=== PATIENT | female | born 1950 | race Caucasian/White ===

== ENCOUNTER → 2020-11-16 12:23 | Outpatient (CLI) | payer MEDICARE, SELFPAY ==
--- NOTE | ~2020-11-16 | MR_ITS ---
EXAMINATION: MR foot LT wo/w con DATE: 11/16/2020 13:41 INDICATION: Left foot pain with erythema at the fifth toe TECHNIQUE: Magnetic resonance imaging (MRI) of the left fore/mid foot was performed without and with 15 mL Multihance intravenous contrast. Sequences included axial, sagittal and coronal T1-weighted FSE , sagittal fluid sensitive FSE STIR, and axial and coronal T2-weighted FS FSE, axial T1-weighted FS F SE and postcontrast axial, sagittal and coronal T1-weighted FS FSE. COMPARISON: None FINDINGS: No traumatic malalignment. No fracture. There is increased fluid signal, enhancement and loss of T1 f at signal occupying the majority of the likely developmentally fused middle and distal phalanges of t he left fifth toe which is suspicious for osteomyelitis. There small foci of susceptibility artifact along what appears be an oblique screw or drill tract extending from dorsal to plantar across the pro ximal metaphyseal region of the first metatarsal with additional tiny foci of susceptibility artifact in the soft tissues overlying the medial head of the first metatarsal. Correlate with surgical histo ry. Marrow signal is otherwise normal throughout. 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 Mild osteoarthritis at several of the tarsal metatarsal and interphalangeal join ts. No abscess, joint effusions or other abnormal fluid collections. The visualized portions of the f lexor and extensor tendons are normal. The Lisfranc ligament complex as well as the collateral ligame nt complex at the metatarsophalangeal joints are normal. IMPRESSION: 1. Marrow signal change and enhancement at the likely fused fifth middle and distal phalanges which a re suspicious for osteomyelitis. Reviewed, dictated and finalized at location [facility]. IMPRESSION: 1. Marrow signal change and enhancement at the likely fused fifth middle and di stal phalanges which are suspicious for osteomyelitis.
[2020-11-16 13:04] LABS: Estimated Glomerular Filt Rate > 60
== END ==
PROVIDERS: Visit Provider Podiatrist Foot & Ankle Surgery
DX: M79.672 Pain in left foot (principal); R93.7 Abnormal findings on diagnostic imaging of other parts of musculoskeletal system
CPT/HCPCS: 73720; A9577

== ENCOUNTER 2021-09-21 15:24 | Emergency (ER) | payer MEDICARE, SELFPAY ==
--- NOTE | 2021-09-21 15:27 | ED.GENADULT ---
HPI - General Adult General Chief complaint: Urogenital-Female Stated complaint: Possible UTI Time Seen by Provider: 09/21/21 15:27 Source: patient Mode of arrival: ambulatory Limitations: no limitations History of Present Illness HPI narrative: 70-year-old female patient presents to the [facility] with complaints of urinary symptoms that started today. Patient states she has had frequency in urination as well as urgency and burning with urination. Denies fevers, body aches or chills. Denies any low back pain. Denies any abdominal pain, nausea, vomiting or diarrhea. Does have low pelvic pain at times. Related Data Home Medications Medication Instructions Recorded Confirmed amlodipine 5 mg tablet 5 mg PO DAILY 09/21/21 09/21/21 celecoxib 200 mg capsule 200 mg PO DIRECTED 09/21/21 09/21/21 levothyroxine 125 mcg tablet 125 mcg PO DAILY 09/21/21 09/21/21 (Synthroid) lisinopril 20 mg tablet 20 mg PO DAILY 09/21/21 09/21/21 sertraline 25 mg tablet 25 mg PO DAILY 09/21/21 09/21/21 Allergies Allergy/AdvReac Type Severity Reaction Status Date / Time codeine Allergy Intermediate Rash Verified 09/21/21 15:37 erythromycin base Allergy Intermediate Rash Verified 09/21/21 15:37 morphine Allergy Intermediate Rash Verified 09/21/21 15:37 tetracycline Allergy Intermediate Palpitation Verified 09/21/21 15:37 s Review of Systems Review of Systems: CONSTITUTIONAL: Denies fever, chills, or sweats. EYES: Denies visual changes, redness, or discharge. ENT: Denies rhinorrhea, congestion, sore throat, or otalgia. CARDIOVASCULAR: Denies chest pain, palpitations, or edema. RESPIRATORY: Denies cough or dyspnea. GASTROINTESTINAL: Denies abdominal pain, nausea, vomiting, or diarrhea. GENITOURINARY: Positive dysuria denies hematuria. SKIN: Denies rash or itching. MUSCULOSKELETAL: Denies back pain, joint pain, or myalgia. NEUROLOGIC: Denies headache, numbness, or weakness. PSYCHIATRIC: Denies anxiety or depression. [facility] Past Medical History Medical History (Updated 09/21/21 @ 16:07 by JUDI Rivas) Anxiety Coronary artery disease Depression Hypercholesterolemia Hypertension Hypothyroidism Comments At the time of my signature I agree with nursing past medical history, surgical, social, and family history. There is no relevant family history pertinent to the presenting complaint. Exam Narrative: GENERAL: Well-appearing, well-nourished, and in no acute distress. HEAD: Normocephalic, atraumatic. EYES: PERRLA and EOMI. ENT: Nares clear, no rhinorrhea or epistaxis. Mucous membranes moist. NECK: Supple. No lymphadenopathy CHEST: Clear to auscultation. No respiratory distress. HEART: Regular rate and rhythm. No murmur heard. Normal peripheral pulses. ABDOMEN: Soft, nontender, nondistended, normal active bowel sounds. No CVA tenderness on percussion EXTREMITIES: Normal range of motion. No edema. SKIN: Warm, dry, no rash. NEURO: No focal deficits. Alert and oriented x3. Course Course Level of Care: Express Care Visit Vital Signs Vital signs: Vital Signs Temperature 36.9 C 09/21/21 15:34 Pulse Rate 86 09/21/21 15:34 Respiratory Rate 18 09/21/21 15:34 Blood Pressure 134/63 09/21/21 15:34 Pulse Oximetry 100 09/21/21 15:34 Oxygen Delivery Room Air 09/21/21 15:34 Temperature 36.9 C 09/21/21 15:34 Pulse Rate 86 09/21/21 15:34 Respiratory Rate 18 09/21/21 15:34 Blood Pressure 134/63 09/21/21 15:34 Pulse Oximetry 100 09/21/21 15:34 Oxygen Delivery Room Air 09/21/21 15:34 Vital signs reviewed Medical Decision Making MDM Narrative Medical decision making narrative: Discussed with patient that according to her dip it does appear that she most likely does have a urinary tract infection. Plan of care for patient is to discharge home with oral antibiotics. Discussed with patient we will need a little bit more urine to send off for culture to make sure that we are treating th
[2021-09-21 15:34] VITALS: BP 134/63; PULSE 86; RESP 18; TEMP 36.9; O2SAT 100
== END 2021-09-21 16:29 | disposition home or self-care (01) ==
PROVIDERS: Emergency Provider Nurse Practitioner Family; PCP Internal Medicine
DX: N39.0 Urinary tract infection, site not specified (principal); I25.10 Atherosclerotic heart disease of native coronary artery without angina pectoris; E78.00 Pure hypercholesterolemia, unspecified; I10 Essential (primary) hypertension; E03.9 Hypothyroidism, unspecified; F41.9 Anxiety disorder, unspecified; F32.A Depression, unspecified
CPT/HCPCS: 81003; 87077; 87086; 87186; 99213; G0463

== ENCOUNTER 2022-08-23 14:46 | Emergency (ER) | payer MEDICARE, SELFPAY ==
[2022-08-23 14:55] VITALS: BP 136/78; PULSE 76; RESP 16; TEMP 36.8; O2SAT 99
--- NOTE | 2022-08-23 14:56 | ED.SKABFB ---
HPI - Skin/Abscess/Foreign Bdy General Chief complaint: Skin/Abscess/Foreign Body Stated complaint: Rt Leg Swelling Time Seen by Provider: 08/23/22 14:56 Source: patient Mode of arrival: ambulatory Limitations: no limitations History of Present Illness HPI narrative: 71-year-old female presented for complaint of right myers redness and tenderness. States yesterday the myers felt tender to touch. Reports mild itching. Also states 2 days ago she had a pedicure and the worker massaged the leg very forcefully. States she did internet research and is treating herself for cellulitis, applied large amount of neosporin, gauze and EDMUNDO bandage to the right leg. Denies calf pain, swelling, cp, palpitations, sob, n/v/d/f/c. Denies open areas to the skin. Denies lip, tongue, or throat swelling, shortness of breath or wheezing. Denies changes to soap, detergent, lotion, or any other exposures. No one else in the house or any contacts with similar symptoms. Related Data Home Medications Medication Instructions Recorded Confirmed ascorbic acid (vitamin C) 500 mg 500 mg PO DAILY 01/29/22 08/23/22 chewable tablet celecoxib 200 mg capsule 200 mg PO DIRECTED 01/29/22 08/23/22 cholecalciferol (vitamin D3) 125 125 mcg PO DAILY 01/29/22 08/23/22 mcg (5,000 unit) capsule sertraline 25 mg tablet 12.5 mg PO PRN PRN Anxiety 01/29/22 08/23/22 montelukast 10 mg tablet 10 mg PO PRN PRN Allergy Symptoms 08/23/22 08/23/22 (Singulair) omeprazole 20 mg capsule,delayed 20 mg PO PRN PRN gerd 08/23/22 08/23/22 release Allergies Allergy/AdvReac Type Severity Reaction Status Date / Time ceftriaxone [From Rocephin] AdvReac Intermediate Vomiting Verified 08/23/22 14:54 codeine AdvReac Intermediate Nausea Verified 08/23/22 14:54 meloxicam AdvReac Intermediate Gastrointestinal Verified 08/23/22 14:54 Upset morphine AdvReac Intermediate Vomiting Verified 08/23/22 14:54 tetracycline AdvReac Intermediate Palpitation Verified 08/23/22 14:54 s trazodone AdvReac Intermediate Nausea Verified 08/23/22 14:54 Bactrim ds AdvReac Intermediate Gastrointestinal Uncoded 08/23/22 14:54 Upset cucuramin AdvReac Intermediate Nausea Uncoded 08/23/22 14:54 tumeric AdvReac Intermediate Nausea Uncoded 08/23/22 14:54 Review of Systems Review of Systems: CONSTITUTIONAL: Denies body aches, fever, chills, or sweats. EYES: Denies visual changes, redness, or discharge. ENT: Denies rhinorrhea, congestion CARDIOVASCULAR: Denies chest pain, palpitations, or edema. RESPIRATORY: Denies cough or dyspnea. GASTROINTESTINAL: Denies abdominal pain, nausea, vomiting, or diarrhea. SKIN: reports redness to myers MUSCULOSKELETAL: Denies back pain, joint pain, or myalgia. NEUROLOGIC: Denies headache, numbness, tingling, or weakness. [facility] Past Medical History Medical History Anxiety Coronary artery disease Depression Hypercholesterolemia Hyperglycemia Hypertension Hypothyroidism Surgical History Surgical History H/O: hysterectomy Social History Social History Smoking status: Never smoker Alcohol intake: current Alcohol use details: rarely - social Substance use: never Substance use type: does not use Lack of Transportation: No Lack of Food: Never True Current Housing: I Have Housing Concerned About Future Housing: No Difficulty Paying Gas/Electric Bills: No Difficulty Paying for Meds: No Currently Unemployed: No Difficulty w/ Childcare or Family Care: No Living arrangements: with family Occupation/Education: retired Gender identity (if verbalized by the patient): Female Comments At time of signature, I have reviewed and agree with nursing past medical, surgical, social and family history unless otherwise noted. Please see nursing chart for further informat
== END 2022-08-23 15:28 | disposition home or self-care (01) ==
PROVIDERS: Emergency Provider Nurse Practitioner Family; PCP Physician Assistant Medical
DX: L03.115 Cellulitis of right lower limb (principal); I25.10 Atherosclerotic heart disease of native coronary artery without angina pectoris; E78.00 Pure hypercholesterolemia, unspecified; I10 Essential (primary) hypertension; E03.9 Hypothyroidism, unspecified; F41.9 Anxiety disorder, unspecified
CPT/HCPCS: 99213; G0463

== ENCOUNTER 2023-09-15 09:08 | Outpatient (CLI) | payer MEDICARE, OTHER, SELFPAY ==
--- NOTE | ~2023-09-15 | CT_ITS ---
Clinical Indication: Chest wall mass CT Scan of the Chest with Contrast: Technique: Contiguous sections were acquired throughout the chest after intravenous administration of 75 cc of Omnipaque 350. Dose reduction technique was used on this scan by utilizing automated exposu re control and iterative reconstruction technique. The dose-length product (DLP) was 297.25 mGy-cm. Findings: There is no evidence of any significant mediastinal, hilar or axillary lymphadenopathy. There is no f illing defect in the pulmonary arterial tree to suggest pulmonary embolus. There is no evidence of ao rtic dissection or aneurysm. There is no evidence of pleural or pericardial effusion. The lungs are clear. No pulmonary nodules or infiltrates are noted. Images through the upper abdomen reveal diffuse ataxia stenosis. There is probable bilateral intracap sular breast implant rupture. Impression: No abnormal mass lesion or swelling evident. Clear lungs. Probable bilateral intracapsular breast implant rupture. Reviewed, dictated and finalized at [facility]. Impression: No abnormal mass lesion or swelling evident. Clear lungs. Probable bilateral intracapsular breast implant rupture.
[2023-09-15 09:37] LABS: Estimated Glomerular Filt Rate > 60
== END 2023-09-15 09:09 ==
LOC: MICIMG 09:09
PROVIDERS: PCP Physician Assistant Medical; Visit Provider Physician Assistant Medical
DX: R22.2 Localized swelling, mass and lump, trunk (principal)
CPT/HCPCS: 71260; Q9967